=== PATIENT | female | born 1985 | race African-American/Black ===

== ENCOUNTER 2018-03-20 20:35 | Emergency (ER) | payer OTHER ==
[~2018-03-20] VITALS: Ht 157.5 cm; Wt 184.0 kg
[2018-03-20] MEDS ORDERED: ALBUTEROL (0.083%) 2.5MG/3ML NEB HHN STA (23:55)
[2018-03-21] MEDS ORDERED: ACETAMINOPHEN 325MG TABLET PO ONE
[2018-03-21 00:40] LABS: BASOPHILS % 0.7 % (0.0-2.0); EOSINOPHILS % 0.6 % (0.0-5.0); LYMPHOCYTES % 31.9 % (20.0-50.0); MEAN CORPUSCULAR VOLUME 65.3 fL (81.0-99.0); MEAN PLATELET VOLUME 8.8 fl (7.4-10.4); MONOCYTES % 7.3 % (2.0-8.0); NEUTROPHILS % 59.5 % (40.0-76.0); PLATELET 223 x1000/uL (130-400); RED BLOOD CELL COUNT 3.05 mill/uL (4.2-5.4); RED CELL DISTRIBUTION WIDTH 35.9 % (11.6-14.6)
[2018-03-21 00:45] LABS: CHLORIDE 108 mEq/L (98-107)
[2018-03-21 00:49] LABS: HEMATOCRIT. 19.9 % (36.0-48.0); HEMOGLOBIN. 6.1 g/dL (12.0-16.0)
[2018-03-21 02:56] LABS: PLATELET ESTIMATE NORMAL
[2018-03-21 04:40] VITALS: BP 136/82
== END 2018-03-21 04:45 | disposition home or self-care (01) ==
LOC: ER 20:35
DX: D64.9 Anemia, unspecified (principal); F12.10 Cannabis abuse, uncomplicated; F14.10 Cocaine abuse, uncomplicated; F17.210 Nicotine dependence, cigarettes, uncomplicated; Z71.6 Tobacco abuse counseling; Z98.890 Other specified postprocedural states
CPT/HCPCS: 36415; 71045; 80053; 81025; 84484; 85025; 93005; 99285; 99406; J7611

== ENCOUNTER 2018-04-05 00:39 | Emergency (ER) | payer OTHER ==
[~2018-04-05] VITALS: Ht 157.5 cm; Wt 82.0 kg
[2018-04-05 02:50] VITALS: BP 136/55
[2018-04-05] MEDS ORDERED: IBUPROFEN 800MG TABLET PO ONE (03:30)
== END 2018-04-05 03:58 | disposition home or self-care (01) ==
LOC: ER 02:28
DX: L02.211 Cutaneous abscess of abdominal wall (principal); D64.9 Anemia, unspecified; F12.10 Cannabis abuse, uncomplicated; Z98.890 Other specified postprocedural states
CPT/HCPCS: 99283

== ENCOUNTER 2018-11-05 05:45 | Inpatient (IN) | payer OTHER ==
[~2018-11-05] VITALS: Ht 157.5 cm; Wt 77.6 kg
[2018-11-05] VITALS (11 sets, daily range): BP systolic 116–134; BP diastolic 63–90
[2018-11-05] MEDS ORDERED: SODIUM CHLORIDE 0.9% 1,000 ML IV ONE (06:04)
[2018-11-05] MEDS ORDERED: ONDANSETRON HCL 4MG/2ML INJ IV STA (06:04)
[2018-11-05 06:23] LABS: CLARITY URINE CLEAR (CLEAR); COLOR URINE YELLOW (YELLOW); KETONES URINE NEGATIVE (NEGATIVE); LEUKOCYTE ESTERASE URINE TRACE (NEGATIVE); NITRITE URINE NEGATIVE (NEGATIVE); OCCULT BLOOD URINE NEGATIVE (NEGATIVE); PROTEIN URINE 1+ (NEGATIVE); SPECIFIC GRAVITY URINE 1.014 (1.005-1.030)
[2018-11-05 06:48] LABS: CHLORIDE 109 mEq/L (98-107)
[2018-11-05 06:51] LABS: BASOPHILS % 0.7 % (0.0-2.0); EOSINOPHILS % 0.5 % (0.0-5.0); LYMPHOCYTES % 23.5 % (20.0-50.0); MEAN CORPUSCULAR HEMOGLOBIN 17.4 pg (28.0-32.0); MEAN CORPUSCULAR VOLUME 63.6 fL (81.0-99.0); MONOCYTES % 4.6 % (2.0-8.0); NEUTROPHILS % 70.7 % (40.0-76.0); PLATELET 430 x1000/uL (130-400); RED BLOOD CELL COUNT 1.87 mill/uL (4.2-5.4); RED CELL DISTRIBUTION WIDTH 44.9 % (11.6-14.6)
[2018-11-05 06:52] LABS: ETHANOL BLOOD 35 mg/dL
[2018-11-05 06:55] LABS: HEMATOCRIT. 11.9 % (36.0-48.0); HEMOGLOBIN. 3.3 g/dL (12.0-16.0)
[2018-11-05 07:00] LABS: PHENOBARBITAL < 2.1 ug/mL (15.0-40.0)
[2018-11-05 07:00] LABS: *AMPHETAMINES SCREEN URINE NEGATIVE (NEGATIVE); *BARBITURATES SCREEN URINE NEGATIVE (NEGATIVE); *BENZODIAZEPINES SCREEN URINE NEGATIVE (NEGATIVE); *COCAINE SCREEN URINE PRESUMTIVE POSITIVE (NEGATIVE); METHADONE URINE SCREEN NEGATIVE (NEGATIVE); OPIATES URINE SCREEN NEGATIVE (NEGATIVE)
[2018-11-05 07:01] LABS: CANNABINOID URINE SCREEN PRESUMTIVE POSITIVE (NEGATIVE); PHENCYCLIDINE URINE SCREEN NEGATIVE (NEGATIVE)
[2018-11-05 07:07] LABS: CARBAMAZEPINE < 0.5 ug/mL (4-12)
[2018-11-05 07:10] LABS: VALPROIC ACID < 3.0 ug/mL (50-100)
[2018-11-05] MEDS ORDERED: ACETAMINOPHEN 325MG TABLET PO ONE (07:30)
[2018-11-05 08:04] LABS: PLATELET ESTIMATE INCREASED
[2018-11-05] MEDS ORDERED: CEFTRIAXONE 1 G PREMIX 50 ML IV ONE (09:30)
[2018-11-05] MEDS ORDERED: POTASSIUM CHLORIDE 20MEQ TABLET SR PO ONE (09:30)
[2018-11-05 11:36] LABS: HCG SCREEN NEGATIVE
[2018-11-05] MEDS ORDERED: THIAMINE HCL 100MG TABLET PO NR (16:00)
[2018-11-05] MEDS ORDERED: ACETAMINOPHEN 325MG TABLET PO PRN (16:00)
[2018-11-05] MEDS ORDERED: ONDANSETRON HCL 4MG/2ML INJ IV PRN (16:00)
[2018-11-05] MEDS: DOCUSATE SODIUM 100MG CAPSULE PO SCH (16:39)
[2018-11-05] MEDS: FERROUS SULFATE 325MG TABLET PO SCH (16:39)
[2018-11-05 16:56] LABS: TOTAL IRON BINDING CAPACITY 528 ug/dL (250-450)
[2018-11-05] MEDS: LEVETIRACETAM 500MG TABLET PO SCH (21:24)
[2018-11-05] MEDS: ZOLPIDEM TARTRATE 5MG TABLET PO PRN (23:20)
[2018-11-06] VITALS (14 sets, daily range): BP systolic 113–163; BP diastolic 45–97
[2018-11-06 02:27] LABS: HEMATOCRIT 20.2 % (36.0-48.0); HEMOGLOBIN 6.3 g/dL (12.0-16.0)
[2018-11-06 06:34] LABS: BASOPHILS % 0.5 % (0.0-2.0); EOSINOPHILS % 0.8 % (0.0-5.0); LYMPHOCYTES % 22.9 % (20.0-50.0); MEAN CORPUSCULAR HEMOGLOBIN 23.5 pg (28.0-32.0); MEAN CORPUSCULAR VOLUME 73.9 fL (81.0-99.0); MEAN PLATELET VOLUME 8.7 fl (7.4-10.4); MONOCYTES % 4.1 % (2.0-8.0); NEUTROPHILS % 71.7 % (40.0-76.0); PLATELET 357 x1000/uL (130-400); RED BLOOD CELL COUNT 2.79 mill/uL (4.2-5.4); RED CELL DISTRIBUTION WIDTH 39.3 % (11.6-14.6)
[2018-11-06 06:53] LABS: HEMATOCRIT. 20.6 % (36.0-48.0); HEMOGLOBIN. 6.6 g/dL (12.0-16.0)
[2018-11-06 08:06] LABS: CHLORIDE 110 mEq/L (98-107)
[2018-11-06] MEDS: LEVETIRACETAM 500MG TABLET PO SCH ×2 (08:12→20:42)
[2018-11-06] MEDS: MULTIVITAMINS,THER W-MINERALS TABLET PO SCH (08:13)
[2018-11-06] MEDS: FOLIC ACID 1MG TABLET PO SCH (08:13)
[2018-11-06] MEDS: DOCUSATE SODIUM 100MG CAPSULE PO SCH ×2 (08:13→17:24)
[2018-11-06] MEDS: THIAMINE HCL 100MG TABLET PO SCH (08:13)
[2018-11-06] MEDS: FERROUS SULFATE 325MG TABLET PO SCH ×3 (08:13→17:24)
[2018-11-06 19:13] LABS: HEMATOCRIT 25.6 % (36.0-48.0); HEMOGLOBIN 7.9 g/dL (12.0-16.0)
[2018-11-06 19:18] LABS: PROTHROMBIN TIME 10.7 sec (9.6-11.0)
[2018-11-06] MEDS: ZOLPIDEM TARTRATE 5MG TABLET PO PRN (20:42)
[2018-11-07] VITALS (8 sets, daily range): BP systolic 125–150; BP diastolic 55–88
[2018-11-07 06:44] LABS: BASOPHILS % 0.8 % (0.0-2.0); EOSINOPHILS % 0.7 % (0.0-5.0); HEMATOCRIT. 24.5 % (36.0-48.0); LYMPHOCYTES % 32.3 % (20.0-50.0); MEAN CORPUSCULAR HEMOGLOBIN 24.8 pg (28.0-32.0); MEAN CORPUSCULAR VOLUME 76.6 fL (81.0-99.0); MEAN PLATELET VOLUME 8.8 fl (7.4-10.4); MONOCYTES % 5.7 % (2.0-8.0); NEUTROPHILS % 60.5 % (40.0-76.0); PLATELET 427 x1000/uL (130-400); RED CELL DISTRIBUTION WIDTH 36.5 % (11.6-14.6)
[2018-11-07 07:03] LABS: CHLORIDE 108 mEq/L (98-107)
[2018-11-07 07:43] LABS: HEMOGLOBIN. 7.9 g/dL (12.0-16.0)
[2018-11-07] MEDS: LEVETIRACETAM 500MG TABLET PO SCH (08:24)
[2018-11-07] MEDS: DOCUSATE SODIUM 100MG CAPSULE PO SCH (08:24)
[2018-11-07] MEDS: FOLIC ACID 1MG TABLET PO SCH (08:24)
[2018-11-07] MEDS: MULTIVITAMINS,THER W-MINERALS TABLET PO SCH (08:24)
[2018-11-07] MEDS: FERROUS SULFATE 325MG TABLET PO SCH ×2 (08:24→12:52)
[2018-11-07] MEDS: THIAMINE HCL 100MG TABLET PO SCH (08:24)
== END 2018-11-07 13:45 | disposition home or self-care (01) | DRG 663 ==
LOC: ER 05:45 → 5EST 08:36 → EDBEDREQ 08:45 → SUPCPDRO 10:34 → CANRESERV 11:59 → ENRESERV 11:59 → ER 12:40
PROVIDERS: ADMIT Internal Medicine; ATTEND Internal Medicine
PROC: 30233N1 Transfusion of Nonautologous Red Blood Cells into Peripheral Vein, Percutaneous Approach (ICD-10-PCS; principal; 2018-11-05)
DX: D64.9 Anemia, unspecified (principal); E87.8 Other disorders of electrolyte and fluid balance, not elsewhere classified; I27.20 Pulmonary hypertension, unspecified; D25.9 Leiomyoma of uterus, unspecified; E87.6 Hypokalemia; G40.909 Epilepsy, unspecified, not intractable, without status epilepticus; F12.90 Cannabis use, unspecified, uncomplicated; F10.10 Alcohol abuse, uncomplicated; F14.10 Cocaine abuse, uncomplicated; F17.210 Nicotine dependence, cigarettes, uncomplicated; Z98.891 History of uterine scar from previous surgery; Z71.41 Alcohol abuse counseling and surveillance of alcoholic; Z71.51 Drug abuse counseling and surveillance of drug abuser
CPT/HCPCS: 36415; 36430; 71045; 76830; 76856; 80048; 80156; 80165; 80184; 80185; 80305; 80320; 82728; 83540; 83550; 84484; 84703; 85014; 85018; 85044; 85049; 85384; 86850; 86900; 86920; 93005; 93970; 96361; 96374; 99291; J0696; J2405; J7030; J7040; J7050; P9016; G0480

== ENCOUNTER 2020-04-11 01:24 | Inpatient (IN) | payer MEDICAID, OTHER ==
[2020-04-11] VITALS (14 sets, daily range): BP systolic 117–147; BP diastolic 43–72
[~2020-04-11] VITALS: Ht 157.5 cm; Wt 76.2 kg
[~2020-04-11 01:24] MED LIST: DOCU-138 MT; ESTR0.6264 MT; FERR325T6 MT
[2020-04-11] MEDS ORDERED: MORPHINE SULFATE 4 MG/ML CPJ (NOT FOR IM USE) IV STA (03:35)
[2020-04-11] MEDS ORDERED: ONDANSETRON HCL 4MG/2ML INJ IV STA (03:35)
[2020-04-11] MEDS ORDERED: SODIUM CHLORIDE 0.9% 1,000 ML IV ONE (03:45)
[2020-04-11 04:18] LABS: CHLORIDE 109 mEq/L (98-107)
[2020-04-11 04:46] LABS: CLARITY URINE CLEAR (CLEAR); COLOR URINE YELLOW (YELLOW); KETONES URINE NEGATIVE (NEGATIVE); LEUKOCYTE ESTERASE URINE 2+ (NEGATIVE); NITRITE URINE NEGATIVE (NEGATIVE); OCCULT BLOOD URINE 2+ (NEGATIVE); PROTEIN URINE NEGATIVE (NEGATIVE); SPECIFIC GRAVITY URINE 1.014 (1.005-1.030); UROBILINOGEN URINE 0.2 E.U./dL (0.2-1.0)
[2020-04-11 04:54] LABS: BASOPHILS % 1.2 % (0.0-2.0); EOSINOPHILS % 2.6 % (0.0-5.0); LYMPHOCYTES % 18.2 % (20.0-50.0); MEAN CORPUSCULAR HEMOGLOBIN 18.8 pg (28.0-32.0); MEAN CORPUSCULAR VOLUME 66.4 fL (81.0-99.0); MEAN PLATELET VOLUME 7.8 fl (7.4-10.4); PLATELET 941 x1000/uL (130-400); RED BLOOD CELL COUNT 1.76 mill/uL (4.2-5.4); RED CELL DISTRIBUTION WIDTH 32.9 % (11.6-14.6)
[2020-04-11 04:56] LABS: HEMOGLOBIN. 3.3 g/dL (12.0-16.0)
[2020-04-11 04:57] LABS: HEMATOCRIT. 11.7 % (36.0-48.0)
[2020-04-11 04:58] LABS: PLATELET ESTIMATE MARKEDLY INCREASED
[2020-04-11] MEDS ORDERED: ACETAMINOPHEN WITH CODEINE 300/30MG TABLET PO ONE (06:30)
[2020-04-11] MEDS: HYDROCODONE/ACETAMINOPHEN 5/325MG TABLET PO PRN ×2 (09:28→20:12)
[2020-04-11] MEDS ORDERED: ONDANSETRON HCL 4MG/2ML INJ IV PRN (09:30)
[2020-04-11 09:54] LABS: MEAN CORPUSCULAR HEMOGLOBIN 21.7 pg (28.0-32.0); PLATELET 882 x1000/uL (130-400); RED BLOOD CELL COUNT 2.21 mill/uL (4.2-5.4); RED CELL DISTRIBUTION WIDTH 38.8 % (11.6-14.6)
[2020-04-11 10:02] LABS: HEMATOCRIT 15.5 % (36.0-48.0); HEMOGLOBIN 4.8 g/dL (12.0-16.0)
[2020-04-11] MEDS ORDERED: HYDROCODONE/ACETAMINOPHEN 5/325MG TABLET PO NR (12:45)
[2020-04-11] MEDS: ACETAMINOPHEN 325MG TABLET PO PRN (16:17)
[2020-04-12] VITALS (9 sets, daily range): BP systolic 128–139; BP diastolic 59–88
[2020-04-12 00:25] LABS: HEMATOCRIT 21.6 % (36.0-48.0); HEMOGLOBIN 7.1 g/dL (12.0-16.0)
[2020-04-12 00:27] LABS: PROTHROMBIN TIME 10.5 sec (9.6-11.0)
[2020-04-12 09:13] LABS: *AMPHETAMINES SCREEN URINE NEGATIVE (NEGATIVE)
[2020-04-12 09:14] LABS: *BARBITURATES SCREEN URINE NEGATIVE (NEGATIVE); *BENZODIAZEPINES SCREEN URINE NEGATIVE (NEGATIVE); METHADONE URINE SCREEN NEGATIVE (NEGATIVE); OPIATES URINE SCREEN NEGATIVE (NEGATIVE); PHENCYCLIDINE URINE SCREEN NEGATIVE (NEGATIVE)
[2020-04-12 09:26] LABS: *COCAINE SCREEN URINE PRESUMTIVE POSITIVE (NEGATIVE); CANNABINOID URINE SCREEN PRESUMTIVE POSITIVE (NEGATIVE)
[2020-04-12] MEDS ORDERED: DOCU-138 MT (09:46)
[2020-04-12] MEDS ORDERED: FERR325T6 MT (09:46)
[2020-04-12 10:03] LABS: BASOPHILS % 1.1 % (0.0-2.0); EOSINOPHILS % 2.7 % (0.0-5.0); HEMATOCRIT. 22.1 % (36.0-48.0); HEMOGLOBIN. 7.2 g/dL (12.0-16.0); LYMPHOCYTES % 27.9 % (20.0-50.0); MEAN CORPUSCULAR HEMOGLOBIN 24.5 pg (28.0-32.0); MEAN CORPUSCULAR VOLUME 75.1 fL (81.0-99.0); MEAN PLATELET VOLUME 8.7 fl (7.4-10.4); MONOCYTES % 6.8 % (2.0-8.0); NEUTROPHILS % 61.5 % (40.0-76.0); PLATELET 721 x1000/uL (130-400); RED BLOOD CELL COUNT 2.95 mill/uL (4.2-5.4); RED CELL DISTRIBUTION WIDTH 34.6 % (11.6-14.6)
[2020-04-12 10:13] LABS: CHLORIDE 107 mEq/L (98-107)
[2020-04-12] MEDS: ACETAMINOPHEN 325MG TABLET PO PRN (11:06)
[2020-04-12] MEDS ORDERED: HYDR-4001 MT (12:13)
[2020-04-12 17:05] LABS: HEMATOCRIT 23.5 % (36.0-48.0); HEMOGLOBIN 7.8 g/dL (12.0-16.0)
[2020-04-12 17:14] LABS: PROTHROMBIN TIME 10.6 sec (9.6-11.0)
== END 2020-04-12 18:04 | disposition home or self-care (01) | DRG 532 ==
LOC: ER 01:42 → 5WST 07:22 → EDBEDREQ 07:27 → ENRESERV 09:53 → CANBEDREQ 22:58
PROVIDERS: ADMIT Internal Medicine; ATTEND Internal Medicine
PROC: 30233R1 Transfusion of Nonautologous Platelets into Peripheral Vein, Percutaneous Approach (ICD-10-PCS; principal; 2020-04-11)
DX: D25.9 Leiomyoma of uterus, unspecified (principal); D62 Acute posthemorrhagic anemia; N92.0 Excessive and frequent menstruation with regular cycle; J45.909 Unspecified asthma, uncomplicated; F17.210 Nicotine dependence, cigarettes, uncomplicated; F14.90 Cocaine use, unspecified, uncomplicated; E87.8 Other disorders of electrolyte and fluid balance, not elsewhere classified; Z79.899 Other long term (current) drug therapy; Z72.89 Other problems related to lifestyle; Z71.51 Drug abuse counseling and surveillance of drug abuser; Z71.6 Tobacco abuse counseling; R77.8 Other specified abnormalities of plasma proteins
CPT/HCPCS: 36415; 71045; 76830; 76856; 80048; 80053; 80305; 81003; 83605; 83880; 84484; 85014; 85018; 85025; 85027; 85049; 85384; 86850; 86900; 86920; 93005; 99291; J2270; J2405; J7030; P9016

== ENCOUNTER 2020-09-01 00:01 | Inpatient (IN) | payer MEDICAID, OTHER ==
[2020-09-01] VITALS (16 sets, daily range): BP systolic 102–137; BP diastolic 49–69
[~2020-09-01] VITALS: Ht 157.5 cm; Wt 76.7 kg
[~2020-09-01 00:01] MED LIST changes: -ESTR0.6264 MT; +HYDR-4001 MT
[2020-09-01] MEDS ORDERED: KETOROLAC 30MG/ML VIAL IV STA (01:12)
[2020-09-01] MEDS ORDERED: ONDANSETRON HCL 4MG/2ML INJ IV STA (01:12)
[2020-09-01] MEDS ORDERED: SODIUM CHLORIDE 0.9% 1,000 ML IV ONE (01:15)
[2020-09-01 01:38] LABS: MEAN CORPUSCULAR HEMOGLOBIN 22.1 pg (28.0-32.0); MEAN CORPUSCULAR VOLUME 74.5 fL (81.0-99.0); MEAN PLATELET VOLUME 8.6 fl (7.4-10.4); PLATELET 97 x1000/uL (130-400); RED BLOOD CELL COUNT 1.63 mill/uL (4.2-5.4); RED CELL DISTRIBUTION WIDTH 36.7 % (11.6-14.6)
[2020-09-01 01:43] LABS: CHLORIDE 110 mEq/L (98-107)
[2020-09-01 01:45] LABS: HEMATOCRIT. 12.1 % (36.0-48.0); HEMOGLOBIN. 3.6 g/dL (12.0-16.0)
[2020-09-01 01:47] LABS: ETHANOL BLOOD < 10 mg/dL
[2020-09-01 01:58] LABS: HCG SCREEN NEGATIVE
[2020-09-01 02:34] LABS: NUCLEATED RED BLOOD CELLS 8 /100 WBC; PLATELET ESTIMATE SLIGHTLY DECREASED
[2020-09-01 03:50] LABS: *AMPHETAMINES SCREEN URINE NEGATIVE (NEGATIVE); *BARBITURATES SCREEN URINE NEGATIVE (NEGATIVE); *BENZODIAZEPINES SCREEN URINE NEGATIVE (NEGATIVE)
[2020-09-01 03:51] LABS: METHADONE URINE SCREEN NEGATIVE (NEGATIVE); OPIATES URINE SCREEN NEGATIVE (NEGATIVE); PHENCYCLIDINE URINE SCREEN NEGATIVE (NEGATIVE)
[2020-09-01 04:27] LABS: *COCAINE SCREEN URINE PRESUMTIVE POSITIVE (NEGATIVE); CANNABINOID URINE SCREEN PRESUMTIVE POSITIVE (NEGATIVE)
[2020-09-01 08:02] LABS: BASOPHILS % 0.7 % (0.0-2.0); EOSINOPHILS % 1.3 % (0.0-5.0); LYMPHOCYTES % 28.3 % (20.0-50.0); MEAN CORPUSCULAR VOLUME 78.1 fL (81.0-99.0); MEAN PLATELET VOLUME 9.3 fl (7.4-10.4); MONOCYTES % 2.5 % (2.0-8.0); NEUTROPHILS % 67.2 % (40.0-76.0); PLATELET 95 x1000/uL (130-400); RED CELL DISTRIBUTION WIDTH 31.9 % (11.6-14.6)
[2020-09-01 08:14] LABS: HEMATOCRIT. 15.6 % (36.0-48.0); HEMOGLOBIN. 4.8 g/dL (12.0-16.0)
[2020-09-01] MEDS ORDERED: ACETAMINOPHEN 325MG TABLET PO PRN (09:15)
[2020-09-01] MEDS ORDERED: ONDANSETRON HCL 4MG/2ML INJ IV PRN (09:15)
[2020-09-01] MEDS ORDERED: KETOROLAC 30MG/ML VIAL IV PRN (15:30)
[2020-09-01 19:22] LABS: HEMOGLOBIN 7.5 g/dL (12.0-16.0)
[2020-09-02] VITALS: BP 122/59
[2020-09-02 00:21] VITALS: BP 119/61
[2020-09-02] MEDS: TRAMADOL 50MG TABLET PO PRN ×2 (01:04→08:54)
[2020-09-02 01:21] VITALS: BP 118/62
[2020-09-02 02:30] VITALS: BP 120/69
[2020-09-02 07:15] LABS: HEMATOCRIT. 26.9 % (36.0-48.0); HEMOGLOBIN. 8.7 g/dL (12.0-16.0); MEAN CORPUSCULAR HEMOGLOBIN 25.6 pg (28.0-32.0); MEAN CORPUSCULAR VOLUME 79.7 fL (81.0-99.0); MEAN PLATELET VOLUME 8.6 fl (7.4-10.4); PLATELET 115 x1000/uL (130-400); RED BLOOD CELL COUNT 3.38 mill/uL (4.2-5.4); RED CELL DISTRIBUTION WIDTH 25.3 % (11.6-14.6)
[2020-09-02 08:00] VITALS: BP 130/54
[2020-09-02 09:28] LABS: HEMATOCRIT 30.8 % (36.0-48.0); HEMOGLOBIN 9.7 g/dL (12.0-16.0)
[2020-09-02 09:39] LABS: CLARITY URINE CLOUDY (CLEAR); COLOR URINE YELLOW (YELLOW); KETONES URINE NEGATIVE (NEGATIVE); LEUKOCYTE ESTERASE URINE 2+ (NEGATIVE); NITRITE URINE NEGATIVE (NEGATIVE); OCCULT BLOOD URINE 3+ (NEGATIVE); PH URINE 7.5 (4.5-8.0); PROTEIN URINE 2+ (NEGATIVE); SPECIFIC GRAVITY URINE 1.005 (1.005-1.030); UROBILINOGEN URINE 0.2 E.U./dL (0.2-1.0)
[2020-09-02] MEDS ORDERED: FERR325T6 MT (12:35)
[2020-09-02] MEDS ORDERED: DOCU-138 MT (12:35)
[2020-09-02] MEDS ORDERED: LEVO500T89 MT (12:36)
[2020-09-02 12:59] LABS: NUCLEATED RED BLOOD CELLS 8 /100 WBC; PLATELET ESTIMATE DECREASED
[2020-09-02] MEDS ORDERED: LEVOFLOXACIN 500MG TABLET PO SCH (14:00)
[2020-09-02 15:58] VITALS: BP 138/45
[2020-09-03] MEDS ORDERED: LEVOFLOXACIN 500MG TABLET PO SCH (11:00)
== END 2020-09-02 17:53 | disposition home or self-care (01) | DRG 663 ==
LOC: ER 00:01 → 6WST 03:36 → ENRESERV 07:22
PROVIDERS: ADMIT Internal Medicine; ATTEND Internal Medicine
PROC: 30233N1 Transfusion of Nonautologous Red Blood Cells into Peripheral Vein, Percutaneous Approach (ICD-10-PCS; principal; 2020-09-01)
DX: D62 Acute posthemorrhagic anemia (principal); D25.9 Leiomyoma of uterus, unspecified; E66.9 Obesity, unspecified; N39.0 Urinary tract infection, site not specified; E87.8 Other disorders of electrolyte and fluid balance, not elsewhere classified; F12.90 Cannabis use, unspecified, uncomplicated; F14.90 Cocaine use, unspecified, uncomplicated; D72.829 Elevated white blood cell count, unspecified; Z79.891 Long term (current) use of opiate analgesic; Z79.899 Other long term (current) drug therapy; Z68.30 Body mass index [BMI] 30.0-30.9, adult; Z71.51 Drug abuse counseling and surveillance of drug abuser
CPT/HCPCS: 36415; 80053; 80305; 80320; 81003; 84703; 85014; 85018; 85025; 86850; 86870; 86900; 86920; 93005; 99291; J1885; J2405; J7030; P9016; G0480

== ENCOUNTER 2022-03-19 11:07 | Inpatient (IN) | payer MEDICAID, OTHER ==
[~2022-03-19] VITALS: Ht 157.5 cm; Wt 78.0 kg
[~2022-03-19 11:07] MED LIST changes: +AMLO5TAB88 MT; +BECL10.6 INH; +BENZ100C86 MT; -DOCU-138 MT; +LEVO25TA7 PO; +LEVO500T90 MT; +TOPUD PO
[2022-03-19 12:29] LABS: BASOPHILS % 1.4 % (0.0-2.0); EOSINOPHILS % 0.1 % (0.0-5.0); LYMPHOCYTES % 26.7 % (20.0-50.0); MEAN CORPUSCULAR HEMOGLOBIN 22.4 pg (28.0-32.0); MEAN CORPUSCULAR VOLUME 74.4 fL (81.0-99.0); MEAN PLATELET VOLUME 8.5 fl (7.4-10.4); MONOCYTES % 8.4 % (2.0-8.0); NEUTROPHILS % 63.4 % (40.0-76.0); PLATELET 53 x1000/uL (130-400); RED BLOOD CELL COUNT 2.44 mill/uL (4.2-5.4); RED CELL DISTRIBUTION WIDTH 35.8 % (11.6-14.6)
[2022-03-19 12:35] LABS: CHLORIDE 112 mEq/L (98-107)
[2022-03-19 12:42] LABS: HEMATOCRIT. 18.1 % (36.0-48.0); HEMOGLOBIN. 5.5 g/dL (12.0-16.0)
[2022-03-19 13:18] LABS: PLATELET ESTIMATE MARKEDLY DECREASED
[2022-03-19 18:00] VITALS: BP 129/69
[2022-03-19] MEDS ORDERED: ONDANSETRON HCL 4MG/2ML INJ IV PRN (18:00)
[2022-03-19] MEDS ORDERED: FERROUS SULFATE 325MG TABLET PO SCH (18:10)
[2022-03-19 20:44] VITALS: BP 134/63
[2022-03-20] MEDS ORDERED: DOCUSATE SODIUM 250MG CAPSULE PO SCH (09:00)
== END 2022-03-19 23:41 | disposition left against medical advice (07) | DRG 663 ==
LOC: ER 11:07 → EDBEDREQ 13:48 → EDBEDREQTM 13:48 → 7WST 17:46
PROVIDERS: ADMIT Internal Medicine; ATTEND Internal Medicine
PROC: 30233N1 Transfusion of Nonautologous Red Blood Cells into Peripheral Vein, Percutaneous Approach (ICD-10-PCS; principal; 2022-03-19)
DX: D64.9 Anemia, unspecified (principal); D21.9 Benign neoplasm of connective and other soft tissue, unspecified; Z53.29 Procedure and treatment not carried out because of patient's decision for other reasons; Z88.8 Allergy status to other drugs, medicaments and biological substances; Z79.899 Other long term (current) drug therapy
CPT/HCPCS: 36415; 71045; 80053; 85025; 86850; 86900; 86920; 99291; P9016

== ENCOUNTER 2022-04-12 23:13 | Emergency (ER) | payer MEDICAID ==
[~2022-04-12] VITALS: Ht 157.5 cm; Wt 77.0 kg
[2022-04-13] MEDS ORDERED: KETOROLAC 30MG/ML VIAL IV STA (01:18)
[2022-04-13 01:30] VITALS: BP 128/68
[2022-04-13 01:36] LABS: BASOPHILS % 1.4 % (0.0-2.0); EOSINOPHILS % 0.1 % (0.0-5.0); HEMATOCRIT. 24.2 % (36.0-48.0); HEMOGLOBIN. 7.6 g/dL (12.0-16.0); LYMPHOCYTES % 33.8 % (20.0-50.0); MEAN CORPUSCULAR HEMOGLOBIN 23.1 pg (28.0-32.0); MEAN PLATELET VOLUME 8.6 fl (7.4-10.4); MONOCYTES % 7.2 % (2.0-8.0); NEUTROPHILS % 57.5 % (40.0-76.0); PLATELET 70 x1000/uL (130-400); RED BLOOD CELL COUNT 3.27 mill/uL (4.2-5.4); RED CELL DISTRIBUTION WIDTH 33.3 % (11.6-14.6)
[2022-04-13 01:43] LABS: CHLORIDE 107 mEq/L (98-107)
[2022-04-13 02:00] LABS: CLARITY URINE TURBID (CLEAR); COLOR URINE RED (YELLOW); KETONES URINE NEGATIVE (NEGATIVE); LEUKOCYTE ESTERASE URINE 2+ (NEGATIVE); NITRITE URINE POSITIVE (NEGATIVE); OCCULT BLOOD URINE 3+ (NEGATIVE); PROTEIN URINE 3+ (NEGATIVE); SPECIFIC GRAVITY URINE 1.027 (1.005-1.030); UROBILINOGEN URINE 0.2 E.U./dL (0.2-1.0)
[2022-04-13 02:02] LABS: PLATELET ESTIMATE DECREASED
[2022-04-13] MEDS ORDERED: CEPH500C2 MT (02:35)
== END 2022-04-13 02:44 | disposition home or self-care (01) ==
LOC: ER 23:53
DX: D64.9 Anemia, unspecified (principal); N39.0 Urinary tract infection, site not specified; N92.0 Excessive and frequent menstruation with regular cycle; R53.1 Weakness; D25.9 Leiomyoma of uterus, unspecified; Z88.8 Allergy status to other drugs, medicaments and biological substances
CPT/HCPCS: 36415; 80053; 81003; 81025; 85025; 86850; 86900; 86901; 96374; 99283; J1885

== ENCOUNTER 2022-06-16 18:10 | Inpatient (IN) | payer MEDICAID ==
[~2022-06-16] VITALS: Ht 162.6 cm; Wt 77.6 kg
[~2022-06-16 18:10] MED LIST changes: +CEPH500C2 MT; +LEVO-65 MT; -LEVO500T90 MT
[2022-06-16] MEDS ORDERED: ACETAMINOPHEN 325MG TABLET PO PRN (19:30)
[2022-06-16 20:35] LABS: MEAN CORPUSCULAR HEMOGLOBIN 21.5 pg (28.0-32.0); MEAN CORPUSCULAR VOLUME 72.7 fL (81.0-99.0); MEAN PLATELET VOLUME 7.7 fl (7.4-10.4); PLATELET 757 x1000/uL (130-400); RED BLOOD CELL COUNT 2.64 mill/uL (4.2-5.4); RED CELL DISTRIBUTION WIDTH 42.5 % (11.6-14.6)
[2022-06-16 20:46] LABS: HEMATOCRIT. 19.2 % (36.0-48.0); HEMOGLOBIN. 5.7 g/dL (12.0-16.0)
[2022-06-16 20:55] LABS: CHLORIDE 110 mEq/L (98-107)
[2022-06-16 21:03] LABS: B-HCG QUANTITATIVE < 1 mIU/mL (<3)
[2022-06-16 21:41] LABS: PLATELET ESTIMATE MARKEDLY INCREASED
[2022-06-16] MEDS ORDERED: IBUPROFEN 600MG TABLET PO ONE (23:15)
[2022-06-17] VITALS (10 sets, daily range): BP systolic 115–141; BP diastolic 70–87
[2022-06-17] MEDS ORDERED: HYDROCODONE/ACETAMINOPHEN 5/325MG TABLET PO PRN (06:15)
[2022-06-17] MEDS ORDERED: ONDANSETRON HCL 4MG/2ML INJ IV PRN (11:00)
[2022-06-17] MEDS ORDERED: ACETAMINOPHEN 325MG TABLET PO PRN (11:00)
[2022-06-17 15:58] LABS: CHLORIDE 107 mEq/L (98-107)
[2022-06-17 16:00] LABS: BASOPHILS % 1.3 % (0.0-2.0); EOSINOPHILS % 0.4 % (0.0-5.0); LYMPHOCYTES % 34.1 % (20.0-50.0); MEAN CORPUSCULAR HEMOGLOBIN 21.7 pg (28.0-32.0); MEAN CORPUSCULAR VOLUME 71.7 fL (81.0-99.0); MEAN PLATELET VOLUME 7.8 fl (7.4-10.4); MONOCYTES % 7.2 % (2.0-8.0); PLATELET 645 x1000/uL (130-400); RED BLOOD CELL COUNT 3.18 mill/uL (4.2-5.4); RED CELL DISTRIBUTION WIDTH 39.7 % (11.6-14.6)
[2022-06-17 16:23] LABS: HEMOGLOBIN. 6.9 g/dL (12.0-16.0)
[2022-06-17 16:24] LABS: HEMATOCRIT. 22.8 % (36.0-48.0)
[2022-06-17] MEDS ORDERED: NICOTINE 14MG PATCH TD SCH (17:00)
[2022-06-17 18:18] LABS: PLATELET ESTIMATE INCREASED
[2022-06-18] VITALS: BP 120/73
[2022-06-18 01:20] LABS: HEMATOCRIT 24.6 % (36.0-48.0); HEMOGLOBIN 7.6 g/dL (12.0-16.0)
[2022-06-18 02:28] VITALS: BP 150/73
== END 2022-06-18 06:40 | disposition home or self-care (01) | DRG 532 ==
LOC: ER 18:10 → MICUSO 22:50 → 3WST 06-17 01:41
PROVIDERS: ADMIT Internal Medicine; ATTEND Internal Medicine
PROC: 30233N1 Transfusion of Nonautologous Red Blood Cells into Peripheral Vein, Percutaneous Approach (ICD-10-PCS; principal; 2022-06-17)
DX: N92.0 Excessive and frequent menstruation with regular cycle (principal); E44.1 Mild protein-calorie malnutrition; D64.9 Anemia, unspecified; D25.9 Leiomyoma of uterus, unspecified; Z20.822 Contact with and (suspected) exposure to COVID-19; F14.90 Cocaine use, unspecified, uncomplicated; F17.210 Nicotine dependence, cigarettes, uncomplicated; F12.90 Cannabis use, unspecified, uncomplicated; Z68.29 Body mass index [BMI] 29.0-29.9, adult
CPT/HCPCS: 36415; 80048; 80053; 84702; 85014; 85018; 85025; 86850; 86900; 86920; 99291; P9016

== ENCOUNTER 2022-08-22 20:06 | Emergency (ER) | payer MEDICAID, OTHER ==
[~2022-08-22] VITALS: Ht 157.5 cm; Wt 78.2 kg
[~2022-08-22 20:06] MED LIST changes: -AMLO5TAB88 MT; -BECL10.6 INH; -LEVO-65 MT; -LEVO25TA7 PO; -TOPUD PO
[2022-08-22 22:44] LABS: BASOPHILS % 1.9 % (0.0-2.0); EOSINOPHILS % 1.6 % (0.0-5.0); LYMPHOCYTES % 26.5 % (20.0-50.0); MEAN CORPUSCULAR HEMOGLOBIN 22.6 pg (28.0-32.0); MEAN CORPUSCULAR VOLUME 73.7 fL (81.0-99.0); MEAN PLATELET VOLUME 8.9 fl (7.4-10.4); MONOCYTES % 6.1 % (2.0-8.0); NEUTROPHILS % 63.9 % (40.0-76.0); PLATELET 109 x1000/uL (130-400); RED BLOOD CELL COUNT 3.02 mill/uL (4.2-5.4); RED CELL DISTRIBUTION WIDTH 26.4 % (11.6-14.6)
[2022-08-22 22:50] LABS: CHLORIDE 105 mEq/L (98-107)
[2022-08-22 22:56] LABS: HEMOGLOBIN. 6.8 g/dL (12.0-16.0)
[2022-08-22 22:57] LABS: HEMATOCRIT. 22.3 % (36.0-48.0)
[2022-08-22] MEDS ORDERED: FE300LUD MT (23:08)
[2022-08-22 23:18] LABS: HCG SCREEN NEGATIVE
[2022-08-22 23:29] LABS: PLATELET ESTIMATE DECREASED
[2022-08-22 23:35] VITALS: BP 144/81
== END 2022-08-22 23:37 | disposition home or self-care (01) ==
LOC: ER 20:06
DX: D50.9 Iron deficiency anemia, unspecified (principal); I49.8 Other specified cardiac arrhythmias; Z88.8 Allergy status to other drugs, medicaments and biological substances; Z98.890 Other specified postprocedural states
CPT/HCPCS: 36415; 80048; 84703; 85025; 93005; 99284